=== PATIENT | male | born 1960 | race Caucasian/White ===

== ENCOUNTER 2020-05-02 09:26 | Outpatient (CLI) | payer OTHER, SELFPAY ==
--- NOTE | ~2020-05-02 | XR_ITS ---
EXAMINATION: XR chest 2V DATE: 05/02/2020 10:49 INDICATION: Tobacco use TECHNIQUE: Frontal and lateral views of the chest are obtained COMPARISON: None available FINDINGS: The lungs are free of acute opacities. There is no pleural effusion or pneumothorax. The ca rdiomediastinal silhouette is normal. There is moderate thoracic spondylosis. IMPRESSION: 1. No acute cardiopulmonary abnormality. Reviewed, dictated and finalized at location A. ENGINEER
--- NOTE | 2020-05-02 10:29 | ECG_ITS ---
Measurements Intervals [place] Rate: 63 P: 52 NM: 152 QRS: -40 QRSD: 128 T: 32 QT: 393 QTc: 405 Interpretive Statements SINUS RHYTHM LEFT AXIS DEVIATION RIGHT BUNDLE BRANCH BLOCK BASELINE ARTIFACT- I, III, AVL BORDERLINE ECG Electronically Signed On 05-02-2020 11:03:58 TUBE OPERATOR by Cristo Iyer D.O.
[2020-05-02 10:58] LABS: Basophils Absolute Auto 0.1 K/mm3 (0.0-0.1); Basophils Percent Auto 0.8 % (0.2-1.2); Eosinophils Absolute Auto 0.2 K/mm3 (0-0.3); Eosinophils Percent Auto 3.5 % (0-4.4); Hematocrit 43.4 % (42.0-52.0); Hemoglobin 14.5 g/dL (14.0-18.0); Immature Granulocyte Absolute 0.04 K/mm3 (0.00-0.031); Immature Granulocyte Percent A 0.7 % (0-0.5); Lymphocytes Absolute Auto 1.33 K/mm3 (0.9-3.2); Lymphocytes Percent Auto 22.1 % (18.3-44.2); Mean Corpuscular HGB Conc 33.4 g/dl (32-36); Mean Corpuscular Hemoglobin 30.9 pg (26-34); Mean Corpuscular Volume 92.3 fl (80-100); Mean Platelet Volume 10.3 fl (7.4-10.4); Monocytes Absolute Auto 0.8 K/mm3 (0.1-0.6); Monocytes Percent Auto 12.6 % (2.6-8.5); Neutrophils Absolute Auto 3.6 K/mm3 (1.3-6.7); Neutrophils Percent Auto 60.3 % (45.5-73.1); Platelet Count Result 167 k/mm3 (150-375); Red Cell Distribution Width 14.1 % (11.5-14.5)
[2020-05-02 11:11] LABS: Anion Gap 8 mmol/L (8-16); Blood Urea Nitrogen 9 mg/dL (9-20); Calcium 9.3 mg/dL (8.4-10.2); Carbon Dioxide 24 mmol/L (22-30); Chloride 104 mmol/L (98-107); Estimated Glomerular Filt Rate > 60; Glucose 108 mg/dL (75-110); Potassium 4.5 mmol/L (3.4-5.0); Sodium 136 mmol/L (137-145)
== END 2020-05-02 09:27 | disposition home or self-care (01) ==
LOC: ANHSURGERY 09:32
PROVIDERS: PCP Family Medicine; Visit Provider Surgery
DX: Z01.818 Encounter for other preprocedural examination (principal); I45.10 Unspecified right bundle-branch block
CPT/HCPCS: 36415; 71046; 80048; 85025; 93005

== ENCOUNTER 2020-05-04 01:27 | Outpatient (CLI) | payer OTHER, SELFPAY ==
[2020-05-04 20:09] LABS: SARS-CoV-2 RNA PCR Negative
== END 2020-05-04 01:28 | disposition home or self-care (01) ==
LOC: ANHCOVIDDT 01:27
PROVIDERS: PCP Family Medicine; Visit Provider Surgery
DX: Z01.812 Encounter for preprocedural laboratory examination (principal); Z20.822 Contact with and (suspected) exposure to COVID-19
CPT/HCPCS: C9803; U0003

== ENCOUNTER 2020-05-07 02:04 | Day surgery (SDC) | payer OTHER, SELFPAY ==
[2020-05-02 09:24] VITALS: BP 152/94; PULSE 71; RESP 18; TEMP 36.9; O2SAT 95
[2020-05-02 09:49] VITALS: BMI 33.4
--- NOTE | 2020-05-06 10:36 | P.PNAN_ITS ---
Anes - Initial Pre Proc Eval Procedure: Operation Date: 05/07/20 10:30 Proposed Procedures p Repair Incarcerated Umbilical Hernia with Mesh - Tod Valderrama MD Date/Time: 05/06/20 10:36 Surgeon: Tod Valderrama MD Pre Op Diagnosis: incarcerated umbilical hernia Patient Data Age: 59 Gender: M Height: 1.77 m Weight: 104.2 kg Last Vital Signs Temp 36.9 C 05/02/20 09:24 Pulse 71 05/02/20 09:24 Resp 18 05/02/20 09:24 BP 152/94 H 05/02/20 09:24 Pulse Ox 95 05/02/20 09:24 Allergies Allergy/AdvReac Type Severity Reaction Status Date / Time No Known Allergies Allergy Verified 05/02/20 08:26 Home Medications Medication Instructions Recorded Confirmed Type gabapentin 300 mg capsule 300 mg PO TID #270 cap 10/05/19 05/02/20 Rx ondansetron HCl 8 mg tablet 8 mg PO Q8H PRN #30 tablet 02/09/20 05/02/20 Rx fluoxetine 20 mg capsule 20 mg PO DAILY #30 cap 02/19/20 05/02/20 Rx omeprazole 20 mg capsule,delayed 20 mg PO DAILY PRN 02/19/20 05/02/20 History release lorazepam 0.5 mg tablet 0.5 mg PO TID PRN #21 tablet 03/01/20 05/02/20 Rx Patient hx anesthesia problems: none Family hx anesthesia problems: none PMFSH Past Medical History Medical History (Updated 05/07/20 @ 09:28 by Horacio Rinaldi DO) Alcohol abuse quit 12/2019 Anxiety and depression Bipolar affective disorder, currently manic, moderate BMI 33.0-33.9,adult History of hepatitis C as child Mixed hyperlipidemia Nausea & vomiting Neuropathy of both feet Tobacco abuse Vitamin B12 deficiency Surgical History Surgical History No pertinent past surgical history Family History Family History Other Family history of Alzheimer's disease Family history of malignant melanoma Family history of malignant neoplasm of brain Family history of malignant neoplasm of urinary bladder Family history of pancreatic cancer Malignant neoplasm of prostate Social History Social History Smoking packs per day: 1 Smoking cigarettes per day: 20.0 Years smoked: 25 Smoking pack-years: 25.00 Smoking status: Current every day smoker Tobacco type: cigarettes Alcohol intake: former Alcohol use details: QUIT 12/2019, [employer]INKER [employer] Substance use: former Substance use type: marijuana Living arrangements: alone 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 Questions were solicited and answers provided to the satisfaction of the patient/family/POA.
--- NOTE | 2020-05-07 07:53 | WPDHPUPDATE1 ---
History and Physical Update Update Date/Time: 05/07/20 07:53 History and Physical has been reviewed, including an updated exam of the patient. There are NO changes in the patient's condition. Risks, benefits, and alternatives have been discussed and questions answered. Patient agrees to proceed with procedure.
[2020-05-07] MEDS: ACETAMINOPHEN 500 MG TABLET 1000 MG PO (09:29)
[2020-05-07] MEDS: LACTATED RINGERS 1,000 ML 30 ML IV CONT ×2 (09:29→11:33)
[2020-05-07] MEDS: KETOROLAC 15 MG/ML VIAL (*BKC) IV PUSH (09:32)
[2020-05-07 09:38] VITALS: BP 152/86; PULSE 76; RESP 14; TEMP 36.9; O2SAT 97; BMI 33.3
[2020-05-07] MEDS: ceFAZolin 2 GM/D5W 50 ML 2 GM/50 ML BAG IVPB (10:31)
[2020-05-07] MEDS: BUPIVACAINE HCL 0.5% PF 30 ML VIAL 10 ML INFILTRATE (10:53)
--- NOTE | 2020-05-07 11:24 | SUR.OPER ---
EBL 5
[2020-05-07 11:33] VITALS: BP 93/71; PULSE 72; RESP 16; TEMP 36.4; O2SAT 96
--- NOTE | 2020-05-07 11:48 | PM.PROC ---
Procedure Note - Detailed Date of procedure: 05/07/20 Pre-op diagnosis: incarcerated umbilical hernia Incarcerated umbilical hernia Post-op diagnosis: same Procedure performed: Umbilical hernia repair with 4.6 cm Parietex underlay mesh Description of procedure: Patient was taken to the operating room and IV sedation was administered. Prep and drape was carried out. The proposed incision along the lower margin of the umbilicus was marked on the skin. Local anesthetic was infiltrated into the skin and the deeper subcutaneous tissues. Incision was made and dissection was carried down through the skin and to the hernia sac. The sac was then dissected free from the umbilical skin and the surrounding subcutaneous tissues. It was dissected down to its neck. Additional local anesthetic was infiltrated into the neck and the fascia surrounding the neck of the hernia sac. The sac was then amputated at its neck. The subcutaneous was undermined around the hernia defect. Additional local was infiltrated around the fascia. I placed a finger inside the hernia defect and checked for any abdominal wall adhesions in the area. None were found. No other hernias were noted. A 4.6 cm Parietex alturas was chosen. It was folded and placed in the defect. Once it symmetrically covered the defect, I placed cranial and caudal transfascial sutures of 0 Ethibond. These sutures were placed in such a fashion that, when tied, they would advance the edges of the hernia defect towards 1 another. These sutures were tied and had the desired effect. I then closed the hernia defect with [id number] mattress sutures of 0 Ethibond. The repair looked quite satisfactory. I then infiltrated additional local all around the areas of the repair. The umbilical skin was tacked to the fascia with 3 0 Vicryl suture. The subcutaneous was closed with 3 0 Vicryl. Subcuticular interrupted 4 O Vicryl skin stitches were placed. The skin was then closed with running 4 0 Monocryl subcuticular suture. Wound was dressed with Exofin surgical adhesive. The patient was awakened and taken to recovery in good condition. Counts were correct x2. Implants: 4.6 cm Parietex hernia mesh Anesthesia: MAC and local (0.5% Marcaine with Exparel) Surgeon: Tod Valderrama MD Manager Banking: [place] SUERO, Alejandra SUERO Estimated blood loss (mL): 5 Drains: No Packing: No Pathology: none sent Complications: None Condition: stable Disposition: same day Findings: 10 millimeter hernia defect
[2020-05-07 11:58] VITALS: BP 111/81; PULSE 72; RESP 16
--- NOTE | 2020-05-07 12:02 | SUR.PHASEII ---
PATIENT GOT OFF STRETCHER BY HIMSELF WITHIN 5 MINUTES OF ARRIVING FROM OR. AWAKE, ABLE TO WALK BUT DROWSY. ENCOURAGED TO SIT ON RECLINER WHICH HE DID FOR A MOMENT BUT THEN INSISTED ON STANDING. DRINKING FLUIDS WELL. MORE AWAKE, STILL STANDING. DENIES PAIN. ORIENTED X 3.
== END 2020-05-07 12:30 | disposition home or self-care (01) ==
PROVIDERS: PCP Family Medicine; Visit Provider Surgery
PROC: (CPT 49587; principal; 2020-05-07 10:30)
DX: K42.0 Umbilical hernia with obstruction, without gangrene (principal); E78.2 Mixed hyperlipidemia; G62.9 Polyneuropathy, unspecified; F41.9 Anxiety disorder, unspecified; F31.9 Bipolar disorder, unspecified; Z86.19 Personal history of other infectious and parasitic diseases; F17.210 Nicotine dependence, cigarettes, uncomplicated; E66.9 Obesity, unspecified; Z68.33 Body mass index [BMI] 33.0-33.9, adult
CPT/HCPCS: 49587; 36415; 71046; 80048; 85025; 93005; A9270; C1781; C9290; C9803; J0690; J1885; J2250; J2704; J3010; J7120; U0003

== ENCOUNTER 2021-02-20 16:07 | Outpatient (CLI) | payer OTHER, SELFPAY ==
--- NOTE | ~2021-02-20 | XR_ITS ---
EXAMINATION: XR foot LT min 3V DATE: 02/20/2021 16:24 INDICATION: Other specified soft tissue disorder at the left foot. TECHNIQUE: Dorsoplantar, two oblique and lateral views of the left foot were obtained. COMPARISON: Left great toe radiographs dated 10/08/2016 FINDINGS: Mildly displaced subacute mid diaphyseal fractures of the left second and third metatarsals with exub erant bridging callus formation about the second metatarsal fracture and small amount of bridging joe ronald formation at the third metatarsal fracture. There is still discernible lucency along the fracture planes. Alignment remains near-anatomic. No other fractures identified. 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 Moderate-sized Achilles and plantar calcaneal spurs. IMPRESSION: 1. Healing subacute mildly displaced mid diaphyseal fractures of the left second and third metatarsal s. Reviewed, dictated and finalized at location A. IMPRESSION: 1. Healing subacute mildly displaced mid diaphyseal fractures of the left secon d and third metatarsals.
== END 2021-02-20 16:08 ==
PROVIDERS: PCP Nurse Practitioner Family; Visit Provider Nurse Practitioner Family
DX: M79.89 Other specified soft tissue disorders (principal); M19.072 Primary osteoarthritis, left ankle and foot
CPT/HCPCS: 73630